=== PATIENT | female | born 1960 | race Caucasian/White ===

== ENCOUNTER → 2016-11-26 | Outpatient (CLI) | payer BC | END | disposition home or self-care (01) | LOC: CFH 08:10 | PROVIDERS: ATTEND Orthopaedic Surgery Orthopaedic Surgery of the Spine | DX: M48.06 Spinal stenosis, lumbar region (principal); M47.896 Other spondylosis, lumbar region; M51.26 Other intervertebral disc displacement, lumbar region | CPT/HCPCS: 72148 ==

== ENCOUNTER → 2018-05-13 | Outpatient (CLI) | payer BC ==
[~2018-05-13] MED LIST: AMLO2.5T3 PO; ATOR40TA PO; BIRTH CONTROL PO; METO-95 PO
[2018-05-13 16:46] LABS: MICROSCOPIC NOT IND
[2018-05-13 16:47] LABS: BASOPHILS % (AUTO) 0 % (0-1); EOSINOPHILS # (AUTO) 0.19 x10^3/uL (0-0.4); EOSINOPHILS % (AUTO) 2 % (1-7); LYMPHOCYTES # (AUTO) 2.85 x10^3/uL (1-3.4); LYMPHOCYTES % (AUTO) 31 % (22-44); MD NO; MEAN CORPUSCULAR HEMOGLOBIN 28.6 pg (27.0-34.8); MEAN CORPUSCULAR HGB CONC 33.2 g/dL (32.4-35.8); MEAN CORPUSCULAR VOLUME 86.3 fL (80-100); MEAN PLATELET VOLUME 8.3 fL (7.4-10.4); MONOCYTES # (AUTO) 0.52 x10^3/uL (0.2-0.8); MONOCYTES % (AUTO) 6 % (2-9); NEUTROPHILS # (AUTO) 5.76 x10^3/uL (1.8-6.8); NEUTROPHILS % (AUTO) 62 % (42-75); PLATELET COUNT 342 x10^3/uL (130-400); RED BLOOD COUNT 4.77 x10^6/uL (3.82-5.3); RED CELL DISTRIBUTION WIDTH 14.1 % (9.6-15.2)
[2018-05-13 16:48] LABS: CULTURE INDICATED? NO
[2018-05-13 16:56] LABS: ANION GAP 6 mmol/L (5-15); CALCIUM 8.7 mg/dL (8.5-10.1); CHLORIDE 109 mmol/L (98-107); CREATININE 0.65 mg/dL (0.55-1.02); INTERNATIONAL NORMALIZED RATIO 0.89 (0.93-1.1); PROTHROMBIN TIME 9.5 Seconds (9.6-11.5)
== END | disposition home or self-care (01) ==
LOC: STAR 15:39
PROVIDERS: ATTEND Neurological Surgery
DX: Z01.818 Encounter for other preprocedural examination (principal); M51.26 Other intervertebral disc displacement, lumbar region
CPT/HCPCS: 36415; 71046; 80048; 81003; 85025; 85610; 85730; 93005

== ENCOUNTER 2018-05-25 09:46 | Day surgery (SDC) | payer BC ==
[2018-05-13 17:07] VITALS: BP 133/84
[~2018-05-25] VITALS: Ht 162.6 cm; Wt 80.2 kg
[2018-05-25] MEDS ORDERED: LACTATED RINGERS 1,000 ML IV SCH (10:23)
[2018-05-25] MEDS ORDERED: ONDANSETRON ODT 8 MG PO ONE (10:30)
[2018-05-25] MEDS ORDERED: GABAPENTIN 300 MG CAPSULE PO ONE (10:30)
[2018-05-25] MEDS ORDERED: ACETAMINOPHEN 500 MG TABLET PO ONE (10:30)
[2018-05-25 11:04] LABS: HCG UR SG 1.024 (1.003-1.030)
[2018-05-25] MEDS ORDERED: EPINEPHRINE 1 MG/ML, 1ML ONE (12:43)
[2018-05-25] MEDS ORDERED: THROMBIN 5,000 UNIT VIAL TP ONE (12:43)
[2018-05-25] MEDS ORDERED: BUPIVACAINE 0.25% ONE (12:43)
[2018-05-25] MEDS ORDERED: BACITRACIN 50,000 UNIT ONE (12:43)
[2018-05-25] MEDS ORDERED: VANCOMYCIN 1,000 MG ONE (12:43)
[2018-05-25] MEDS ORDERED: METHYLENE BLUE 10 MG/ML 10ML ONE (12:45)
[2018-05-25] MEDS ORDERED: DEXAMETHASONE 4 MG/ML, 1ML ONE (13:13)
[2018-05-25] MEDS ORDERED: SUCCINYLCHOLINE 20 MG/ML, 10ML ONE (13:13)
[2018-05-25] MEDS ORDERED: CEFAZOLIN 1,000 MG ONE (13:13)
[2018-05-25] MEDS ORDERED: PROPOFOL 10 MG/ML, 20ML ONE (13:13)
[2018-05-25] MEDS ORDERED: MEPERIDINE/PF 25MG/0.5ML IVPush PRN (14:00)
[2018-05-25] MEDS ORDERED: SCOPOLAMINE PATCH, 1.5MG PATCH.TD72 TD PRN (14:00)
[2018-05-25] MEDS ORDERED: LORazepam 2 MG/ML, 1ML IVPush PRN (14:00)
[2018-05-25] MEDS ORDERED: HYDROmorphone 2 MG/ML, 1ML IVPush PRN (14:00)
[2018-05-25] MEDS ORDERED: OXYcodone 5 MG/5 ML ORAL.SOL UDC PO PRN (14:00)
[2018-05-25] MEDS ORDERED: LABETALOL 5MG/ML, 20ML IV PRN (14:00)
[2018-05-25] MEDS ORDERED: METOCLOPRAMIDE 5 MG/ML, 2ML IV PRN (14:00)
[2018-05-25] MEDS ORDERED: ALBUTEROL SULFATE 2.5 MG/3 ML NPPB PRN (14:00)
[2018-05-25] MEDS ORDERED: hydrALAzine 20 MG/ML, 1ML IV PRN (14:00)
[2018-05-25] MEDS ORDERED: methylPREDNISolone SOD SUCC 125 MG/2 ML ONE (14:01)
[2018-05-25] MEDS ORDERED: FENTANYL PF 100 MCG/2ML ONE ×2 (14:01→14:53)
[2018-05-25] MEDS ORDERED: OXYC1TAB7 PO (14:33)
[2018-05-25] MEDS ORDERED: METH750T2 PO (14:33)
[2018-05-25] MEDS ORDERED: OXYcodone 5 MG/5 ML ORAL.SOL UDC ONE (14:53)
[2018-05-25] MEDS ORDERED: METHOCARBAMOL 750 MG TABLET ONE (14:53)
[2018-05-25] MEDS: FENTANYL PF 100 MCG/2ML IV PRN ×2 (15:00→15:10)
[2018-05-25] MEDS ORDERED: METHOCARBAMOL 750 MG TABLET PO PRN (15:00)
== END 2018-05-25 16:55 | disposition home or self-care (01) ==
LOC: OUT 09:46
PROVIDERS: ATTEND Neurological Surgery
DX: M51.16 Intervertebral disc disorders with radiculopathy, lumbar region (principal); I10 Essential (primary) hypertension; E78.00 Pure hypercholesterolemia, unspecified; F41.9 Anxiety disorder, unspecified; F32.9 Major depressive disorder, single episode, unspecified; Z98.890 Other specified postprocedural states; Z79.82 Long term (current) use of aspirin
CPT/HCPCS: 63030; 72100; 81025; J0171; J0330; J0690; J1100; J2704; J2930; J3010; J3490; J7120; Q0162; J3370; Q9968